=== PATIENT | female | born 1980 | race Caucasian/White ===

== ENCOUNTER 2016-10-17 19:58 | Emergency (ER) | payer OTHER ==
[2016-10-17 20:19] VITALS: BP 131/85; PULSE 66; TEMP 98.4; BMI 22.8
[2016-10-18 01:05] LABS: URINE APPEARANCE SLCLOUDY; URINE BILIRUBIN NEGATIVE (NEGATIVE); URINE COLOR LTYELLOW; URINE GLUCOSE (UA) NEGATIVE (NEGATIVE); URINE KETONE NEGATIVE (NEGATIVE); URINE NITRITE NEGATIVE (NEGATIVE); URINE PROTEIN NEGATIVE (NEGATIVE); URINE UROBILINOGEN NEGATIVE E.U./dl (0.2-1.0)
[2016-10-18 01:09] LABS: URINE BLOOD 3+ (NEGATIVE); URINE LEUK ESTERASE 2+ (NEGATIVE)
[2016-10-18 01:15] LABS: URINE BACTERIA RARE /hpf (NONE SEEN); URINE HYALINE CAST 2 /lpf; URINE MUCUS RARE; URINE RBC 4 /hpf (0-3); URINE WBC 15 /hpf (3-5)
--- NOTE | 2016-10-18 02:18 | PDOC ---
History of Present Illness - General Chief Complaint: Headache Stated Complaint: PAIN Time Seen by Provider: 10/17/16 23:58 History Source: Patient Exam Limitations: No Limitations - History of Present Illness Initial Comments: 10/18/16 02:14 35yo Female patient presents to ED c/o headache with twitching intermittently. Patient states she was evaluated by her PMD and prescribed Vit B and Ibuprofen for pain. Patient reports symptoms still persist. She denies any other complaint at this time. LNMP: September 22. Timing/Duration: reports: constant Severity: Yes: moderate Associated Symptoms: denies: denies symptoms, confusion, fatigue, fever/chills, insomnia, loss of consciousness, muscle spasms, nausea/vomiting, numbness in legs/feet, paresthesia, ringing in ears, seizures, sleepy, slurred speech, tingling in legs/feet, trouble walking, vision changes, weakness, other Past History - Travel Traveled outside of the country in the last 30 days: No Close contact w/someone who was outside of country & ill: No - Past Medical History Allergies/Adverse Reactions: Allergies Allergy/AdvReac Type Severity Reaction Status Date / Time iron Allergy Severe Itching Verified 10/17/16 20:14 Home Medications: Ambulatory Orders Famotidine [Pepcid] 20 mg PO BID #28 tablet 05/11/16 Ibuprofen [Motrin -] 600 mg PO QID #28 tablet 05/11/16 Nitrofurantoin Monohyd/M-Cryst [Macrobid -] 100 mg PO BID #14 capsule 10/18/16 Asthma: No Cancer: No Cardiac Disorders: No Diabetes: No HTN: No Suicide Attempt (Hx): No Seizures: No Thyroid Disease: No - Surgical History Cholecystectomy: Yes Neurologic Surgery: Yes (HEAD, 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) - Reproductive History (#): 4 Para: 2 Cervical CA: No Dysfunctional Uterine Bleeding: No Ectopic : No Endometrial CA: No Polycystic Ovaries: No Therapeutic (s) & number: No Tubal Ligation: No Spontaneous : 1 - Immunization History Td Vaccination: Yes TDAP Vaccination: Yes Immunization Up to Date: Yes - Psycho/Social/Smoking Cessation Hx Anxiety: No Suicidal Ideation: No Smoking Status: No Smoking History: Never smoked Years of Tobacco Use: 0 Have you smoked in the past 12 months: No Number of Cigarettes Smoked Daily: 0 Cigars Per Day: 0 Hx Alcohol Use: No Drug/Substance Use Hx: No Substance Use Type: None Hx Substance Use Treatment: No Review of Systems - Review of Systems Able to Perform ROS?: Yes Is the patient limited Sami proficient: No Constitutional: No: Chills, Fever HEENTM: No: Blurred Vision, Double Vision, Difficulty Swallowing Respiratory: No: Cough, Shortness of Breath, Stridor, Wheezing Cardiac (ROS): No: Chest Pain, Syncope ABD/GI: No: Constipated, Diarrhea, Nausea, Poor Appetite, Poor Fluid Intake, Vomiting, Abdominal cramping : No: Burning, Dysuria, Flank Pain, Hematuria Musculoskeletal: No: Back Pain, Muscle Weakness Integumentary: No: Bruising, Erythema, Rash, Sweating Neurological: Yes: Headache, Other (Twitching). No: Numbness, Paresthesia, Tingling, Tremors, Weakness All Other Systems: Reviewed and Negative *Physical Exam - Vital Signs Last Vital Signs Temp Pulse Resp BP Pulse Ox 98.4 F 66 18 131/85 100 10/17/16 20:14 10/17/16 20:14 10/17/16 20:14 10/17/16 20:14 10/17/16 20:14 - Physical Exam General Appearance: Yes: Nourished, Appropriately Dressed. No: Apparent Distress, Mild Distress, Moderate Distress, Severe Distress HEENT: positive: EOMI, DARIAN, Normal ENT Inspection, Normal Voice, Symmetrical, TMs Normal, Pharynx Normal. negative: Scleral Icterus (L), Pharyngeal Erythema , Tonsillar Exudate, Tonsillar Erythema, Nasal Congestion, Rhinorrhea, TM Bulging, TM Dull, TM Erythema Neck: positive: Trachea midline, Supple. negative: Rigid, Lymphadenopathy (R), Lymphadenopathy (L) Respiratory/Chest: positive: Lungs Clear, Normal Breath Sounds. negative: Respiratory Distress, Accessory Muscle Use, Labored Respiration, Rapid RR Cardiovascular: positive: Regular Rhythm, Regular Rate Gastrointestinal/Abdominal: positive: Normal Bowel Sounds, Soft. negative: Distended, Guarding, Rebound, Tenderness Musculoskeletal: positive: Normal Inspection. negative: CVA Tenderness Extremity: positive: Normal Capillary Refill, Normal Inspection, Normal Range of Motion. negative: Pedal Edema, Swelling, Calf Tenderness, Erythema, Inflammation Integumentary: positive: Normal Color, Dry, Warm Neurologic: positive: financial planning assistant II-XII NML intact, Fully Oriented, Alert, Normal Mood/ Affect, Normal Response, Motor Strength 09/30 ED Treatment Course - LABORATORY CBC & Chemistry Diagram: 10/18/16 02:59 10/18/16 02:59 - ADDITIONAL ORDERS Additional order review: Laboratory Results 10/18/16 00:50 Urine Color Ltyellow Urine Appearance Slcloudy Urine pH 5.0 Urine Protein Negative Urine Glucose (UA) Negative Urine Ketones Negative Urine Blood 3+ H Urine Nitrite Negative Urine Bilirubin Negative Urine Urobilinogen Negative Ur Leukocyte Esterase 2+ H Urine RBC 4 Urine WBC 15 Ur Epithelial Cells Moderate Urine Bacteria Rare Hyaline Casts 2 Urine Mucus Rare Urine HCG, Qual Negative - RADIOLOGY Radiology Studies Ordered: Category Date Time Status HEAD CT WITHOUT CONTRAST [CT] Stat CT Scan 10/18/16 00:34 Taken *DC/Admit/Observation/Transfer Diagnosis at time of Disposition: Urinary tract infection Qualifiers: Urinary tract infection type: urethritis Qualified Code(s): N34.2 - Other urethritis - Discharge Dispostion Disposition: HOME Condition at time of disposition: Improved Admit: No - Prescriptions Prescriptions: Nitrofurantoin Monohyd/M-Cryst [Macrobid -] 100 mg PO BID #14 capsule - Patient Instructions Printed Discharge Instructions: Urinary Tract Infection Additional Instructions: FOLLOW UP WITH YOUR DOCTOR SCHEDULED. TAKE MEDICATIONS PRESCRIBED. RETURN IF ANY CONCERNS OR WORSENING OF SYMPTOMS FOR FURTHER EVALUATION. Print Language: ARABIC
--- NOTE | 2016-10-18 02:29 | PDOC ---
[id number] 100 10/17/16 20:14 10/17/16 20:14 10/17/16 20:14 10/17/16 20:14 10/17/16 20:14 ED Treatment Course - LABORATORY CBC & Chemistry Diagram: 10/18/16 02:59 10/18/16 02:59 - ADDITIONAL ORDERS Additional order review: Laboratory Results 10/18/16 00:50 Urine Color Ltyellow Urine Appearance Slcloudy Urine pH 5.0 Urine Protein Negative Urine Glucose (UA) Negative Urine Ketones Negative Urine Blood 3+ H Urine Nitrite Negative Urine Bilirubin Negative Urine Urobilinogen Negative Ur Leukocyte Esterase 2+ H Urine RBC 4 Urine WBC 15 Ur Epithelial Cells Moderate Urine Bacteria Rare Hyaline Casts 2 Urine Mucus Rare Urine HCG, Qual Negative Medical Decision Making - Medical Decision Making 10/18/16 02:28 agree with care from OPERATING ROOM TECHNOLOGIST Kranthi *DC/Admit/Observation/Transfer Diagnosis at time of Disposition: UTI (urinary tract infection) - Discharge Dispostion Disposition: HOME Condition at time of disposition: Improved - Prescriptions Prescriptions: Nitrofurantoin Monohyd/M-Cryst [Macrobid -] 100 mg PO BID #14 capsule - Referrals Referrals: Mona Noe MD [Primary Care Provider] - - Patient Instructions Printed Discharge Instructions: Urinary Tract Infection Additional Instructions: FOLLOW UP WITH YOUR DOCTOR SCHEDULED. TAKE MEDICATIONS PRESCRIBED. RETURN IF ANY CONCERNS OR WORSENING OF SYMPTOMS FOR FURTHER EVALUATION. Print Language: TELUGU
[2016-10-18 03:13] LABS: BASOPHIL 0.6 % (0-2.0); EOSINOPHIL 3.2 % (0-4.5); MCH 29.9 pg (25.7-33.7); MCHC 33.1 g/dl (32.0-36.0); MEAN CELL VOLUME 90.4 fl (80-96); MEAN PLT VOLUME 8.2 fl (7.5-11.1); NEUTROPHILS 49.8 % (42.8-82.8); PLATELET COUNT 212 K/MM3 (134-434); RDW 12.8 % (11.6-15.6); WHITE BLOOD COUNT 5.6 K/mm3 (4.0-10.0)
[2016-10-18 04:03] LABS: ANION GAP 12 (8-16); BILIRUBIN,TOTAL 1.1 mg/dL (0.2-1.0); CALCIUM 8.9 mg/dL (8.5-10.1); CO2 26 mmol/L (21-32); COCKROFT - GAULT 109.565; CREATININE 0.6 mg/dL (0.55-1.02); GLUCOSE,RANDOM 91 mg/dL (74-106); SGOT/AST 12 U/L (15-37); SGPT/ALT 26 U/L (12-78); TOT PROT 7.1 g/dl (6.4-8.2)
[2016-10-18 04:04] LABS: ALK PHOS 29 U/L (45-117)
[2016-10-18] MEDS ORDERED: NITROFURANTOIN MACROCRYSTAL 50 MG CAPSULE (FP) PO SCH (04:45)
[2016-10-18] MEDS ORDERED: NITROFURANTOIN MACROCRYSTAL 50 MG CAPSULE (FP) ONE (04:52)
== END 2016-10-18 05:18 | disposition home or self-care (01) ==
LOC: JER 19:58 → JERFT 19:58 → JER 10-18 05:18
DX: N34.2 Other urethritis (principal)
CPT/HCPCS: 36415; 70450-TC; 80053; 81003; 81015; 84703; 85025; 99282-25

== ENCOUNTER 2016-10-28 10:53 | Emergency (ER) | payer OTHER ==
[2016-10-28 11:08] VITALS: PULSE 70; TEMP 97.7; BMI 22.8
--- NOTE | 2016-10-28 11:56 | PDOC ---
History of Present Illness <Marie Reyes - Last Filed: 10/28/16 12:51> <Maris Napier - Last Filed: 10/28/16 14:13> - General Chief Complaint: Chest Pain Stated Complaint: CHESTPAIN Time Seen by Provider: 10/28/16 11:09 - History of Present Illness Initial Comments: 10/28/16 12:47 Patient is a 35 year old female with no significant medical hx who is presenting to the ED one week of intermittent substernal chest pain. The patient describes her pain as moderate in severity and states it worsens with deep breath. Her pain is non-radiating and non-exertional. The patient does endorse some mild shortness of breath but no nausea, vomiting or diaphoresis. The patient reports that she was seen here a week ago for generalized malaise and was told she had a UTI. Denies fevers, chills, abdominal or complaints. Social Hx: Nonsmoker. Denies drug or alcohol use, Allergies: Iron. 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) - Reproductive History (#): 4 Para: 2 Cervical CA: No Dysfunctional Uterine Bleeding: No Ectopic : No Endometrial CA: No Polycystic Ovaries: No Therapeutic (s) & number: No Tubal Ligation: No Spontaneous : 1 - Immunization History Td Vaccination: Yes TDAP Vaccination: Yes Immunization Up to Date: Yes - Psycho/Social/Smoking Cessation Hx Anxiety: No Suicidal Ideation: No Smoking Status: No Smoking History: Never smoked Years of Tobacco Use: 0 Have you smoked in the past 12 months: No Number of Cigarettes Smoked Daily: 0 Cigars Per Day: 0 Hx Alcohol Use: No Drug/Substance Use Hx: No Substance Use Type: None Hx Substance Use Treatment: No <Maris Napier - Last Filed: 10/28/16 14:13> - Past Medical History Allergies/Adverse Reactions: Allergies Allergy/AdvReac Type Severity Reaction Status Date / Time iron Allergy Severe Itching Verified 10/28/16 11:09 Home Medications: Ambulatory Orders NK [No Known Home Medication] 10/28/16 Review of Systems <Marie Reyes - Last Filed: 10/28/16 12:51> <Maris Napier - Last Filed: 10/28/16 14:13> - Review of Systems Comments:: 10/28/16 12:50 GENERAL/CONSTITUTIONAL: No fever or chills. No weakness. HEAD, EYES, EARS, NOSE AND THROAT: No change in vision. No ear pain or discharge. No sore throat. CARDIOVASCULAR: Chest pain and shortness of breath. RESPIRATORY: No cough, wheezing, or hemoptysis. GASTROINTESTINAL: No nausea, vomiting, diarrhea or constipation. GENITOURINARY: No dysuria, frequency, or change in urination. MUSCULOSKELETAL: No joint or muscle swelling or pain. No neck or back pain. ENDOCRINE: No increased thirst. No abnormal weight change. SKIN: No rash NEUROLOGIC: No headache, vertigo, loss of consciousness, or change in strength/ sensation. (Marie Reyes) *Physical Exam <AmyManjeetMarie - Last Filed: 10/28/16 12:51> <Maris Napier - Last Filed: 10/28/16 14:13> - Vital Signs Last Vital Signs Temp Pulse Resp BP Pulse Ox 97.7 F 70 18 113/67 100 10/28/16 11:06 10/28/16 11:06 10/28/16 11:06 10/28/16 11:06 10/28/16 11:06 - Physical Exam Comments: 10/28/16 12:51 GENERAL: Awake, alert, and fully oriented, in no acute distress HEAD: No signs of trauma EYES: PERRLA, EOMI, sclera anicteric, conjunctiva clear ENT: Auricles normal inspection, hearing grossly normal, nares patent, oropharynx clear without exudates. Moist mucosa NECK: Normal ROM, supple, no lymphadenopathy, JVD, or masses LUNGS: Breath sounds equal, clear to auscultation bilaterally. No wheezes, and no crackles HEART: Regular rate and rhythm, normal S1 and S2, no murmurs, rubs or gallops ABDOMEN: Soft, nontender, normoactive bowel sounds. No guarding, no rebound. No masses EXTREMITIES: Normal range of motion, no edema. No clubbing or cyanosis. No cords, erythema, or tenderness NEUROLOGICAL: Cranial nerves II through XII grossly intact. Normal speech, normal gait SKIN: Warm, Dry, normal turgor, no rashes or lesions noted. HEMATOLOGIC/LYMPHATIC: No anemia, easy bleeding, or history of blood clots. ALLERGIC/IMMUNOLOGIC: No hives or skin allergy. (Marie Reyes) Heart Score/ECG Review <Marie Reyes - Last Filed: 10/28/16 12:51> - History History: Slightly suspicious - Electrocardiogram EKG: Normal - Age Age: </= 45 - Troponin Troponin: </= normal limit <Maris Napier - Last Filed: 10/28/16 14:13> - ECG Intrepretation Comment:: 10/28/16 12:51 Poor data quality, interpretation ma be adversely affected Normal sinus rhythm Rightward axis Borderline ECG (Marie Reyes) ED Treatment Course - LABORATORY CBC & Chemistry Diagram: 10/28/16 12:30 10/28/16 12:30 <Marie Reyes - Last Filed: 10/28/16 12:51> - LABORATORY CBC & Chemistry Diagram: 10/28/16 12:30 10/28/16 12:30 <Maris Napier - Last Filed: 10/28/16 14:13> - ADDITIONAL ORDERS Additional order review: Laboratory Results 10/28/16 10/28/16 12:30 12:30 Sodium 140 Potassium 4.0 Chloride 103 Carbon Dioxide 28 Anion Gap 9 BUN 10 Creatinine 0.6 Creat Clearance w eGFR > 60 Random Glucose 85 Calcium 9.3 Total Bilirubin 1.9 H D AST 20 D ALT 28 Alkaline Phosphatase 32 L Creatine Kinase 133 Troponin I < 0.02 Total Protein 7.5 Albumin 4.5 Serum , Qual Negative 10/28/16 12:30 RBC 4.41 MCV 89.8 MCHC 34.2 RDW 12.6 MPV 7.9 Neutrophils % 72.6 D Lymphocytes % 21.9 D Monocytes % 4.4 Eosinophils % 0.7 Basophils % 0.4 - RADIOLOGY Radiology Studies Ordered: Category Date Time Status CHEST PA & LAT [RAD] Stat Radiology 10/28/16 12:04 Taken Medical Decision Making <Marie Reyes - Last Filed: 10/28/16 12:51> <Maris Napier - Last Filed: 10/28/16 14:13> - Medical Decision Making 10/28/16 13:46 Pt presents to the ED compalining of a one week history of intermittent pleuritic chest pain. No risk factors for cardiac disease, heart score is 0, very low concern for cardiac disease. PERC negative--very low concern for PE. Will check CXR, likely discharge home if cxr is negative. (Maris Napier) *DC/Admit/Observation/Transfer <Marie Reyes - Last Filed: 10/28/16 12:51> - Discharge Dispostion Admit: No <Maris Napier - Last Filed: 10/28/16 14:13> Diagnosis at time of Disposition: Chest pain - Discharge Dispostion Disposition: HOME Condition at time of disposition: Good - Patient Instructions Printed Discharge Instructions: DI for Atypical Chest Pain - Attestations Scribe Attestion: 10/28/16 12:51 Documentation prepared by Marie Reyes, acting as medical sociologist for Maris Napier MD. (Marie Reyes)
[2016-10-28 12:38] LABS: BASOPHIL 0.4 % (0-2.0); EOSINOPHIL 0.7 % (0-4.5); MCH 30.8 pg (25.7-33.7); MCHC 34.2 g/dl (32.0-36.0); MEAN CELL VOLUME 89.8 fl (80-96); MEAN PLT VOLUME 7.9 fl (7.5-11.1); NEUTROPHILS 72.6 % (42.8-82.8); PLATELET COUNT 209 K/MM3 (134-434); RDW 12.6 % (11.6-15.6); WHITE BLOOD COUNT 7.2 K/mm3 (4.0-10.0)
[2016-10-28 13:06] LABS: ALBUMIN 4.5 g/dl (3.4-5.0); ANION GAP 9 (8-16); BILIRUBIN,TOTAL 1.9 mg/dL (0.2-1.0); CALCIUM 9.3 mg/dL (8.5-10.1); CO2 28 mmol/L (21-32); COCKROFT - GAULT 109.565; CREATININE 0.6 mg/dL (0.55-1.02); GLUCOSE,RANDOM 85 mg/dL (74-106); SGOT/AST 20 U/L (15-37); SGPT/ALT 28 U/L (12-78); TOT PROT 7.5 g/dl (6.4-8.2)
[2016-10-28 13:09] LABS: ALK PHOS 32 U/L (45-117); TROPONIN I < 0.02 ng/ml (0.00-0.05)
[2016-10-28 14:34] VITALS: BP 143/73
--- NOTE | 2016-10-29 19:19 | EKG ---
Test Reason : Blood Pressure : / mmHG Vent. Rate : 076 BPM Atrial Rate : 076 BPM P-R Int : 174 ms QRS Dur : 076 ms QT Int : 398 ms P-R-T Axes : 041 092 065 degrees QTc Int : 447 ms POOR DATA QUALITY, INTERPRETATION MAY BE ADVERSELY AFFECTED NORMAL SINUS RHYTHM RIGHTWARD AXIS BORDERLINE ECG WHEN COMPARED WITH ECG OF 21-SEP-2006 15:43, NONSPECIFIC T WAVE ABNORMALITY NOW EVIDENT IN ANTERIOR LEADS Confirmed by LEONIE OLIVARES MD ([id number]) on 10/29/2016 7:18:52 PM Referred By: Confirmed By:LEONIE OLIVARES MD
== END 2016-10-28 14:34 | disposition home or self-care (01) ==
LOC: JER 10:53
DX: R07.9 Chest pain, unspecified (principal)
CPT/HCPCS: 36415; 71020-TC; 80053; 82550; 84484; 84703; 85025; 93005; 93010; 99283-25

== ENCOUNTER 2017-06-25 08:47 | Emergency (ER) | payer OTHER ==
[2017-06-25 08:54] VITALS: BP 119/66; PULSE 77; TEMP 97.8; BMI 22.8
--- NOTE | 2017-06-25 09:09 | PDOC ---
History of Present Illness - General Chief Complaint: Respiratory Stated Complaint: COUGH Time Seen by Provider: 06/25/17 09:05 History Source: Patient Exam Limitations: No Limitations - History of Present Illness Initial Comments: 06/25/17 11:45 This 36-year-old female presents to the emergency room with complaint of a cough. Apparently she went to see her primary physician on Monday was given a Z- Brady because he told her that she had bronchitis. But the cough is still causing her to be up at night and she is now here for relief. Denies any fever, chills. She is also here with her mom who is having similar complaints. Past History - Past Medical History Allergies/Adverse Reactions: Allergies Allergy/AdvReac Type Severity Reaction Status Date / Time iron Allergy Severe Itching Verified 06/25/17 08:54 Home Medications: Ambulatory Orders Cholecalciferol (Vitamin D3) [Vitamin D3] 2,000 unit PO DAILY 05/12/17 Cyanocobalamin (Vitamin B-12) [Vitamin B-12] 2,000 mcg PO DAILY 05/12/17 Naproxen [Naprosyn -] 500 mg PO BID PRN #14 tablet 05/12/17 Benzonatate [Tessalon Pearls -] 100 mg PO TID #21 capsule 06/25/17 Asthma: No Cancer: No Cardiac Disorders: No COPD: No Diabetes: No HTN: No Seizures: No Thyroid Disease: No 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) - Reproductive History (#): 4 Para: 2 Cervical CA: No Dysfunctional Uterine Bleeding: No Ectopic : No Endometrial CA: No Polycystic Ovaries: No Therapeutic (s) & number: No Tubal Ligation: No Spontaneous : 1 - Immunization History Td Vaccination: Yes TDAP Vaccination: Yes Immunization Up to Date: Yes - Suicide/Smoking/Psychosocial Hx Smoking Status: No Smoking History: Never smoked Years of Tobacco Use: 0 Have you smoked in the past 12 months: No Number of Cigarettes Smoked Daily: 0 Cigars Per Day: 0 Hx Alcohol Use: No Drug/Substance Use Hx: No Substance Use Type: None Hx Substance Use Treatment: No Review of Systems - Review of Systems Able to Perform ROS?: Yes Comments:: 06/25/17 11:45 General statement: Feeling of positive cough all the time Hematology: neg history of bleeding/blood thinners Skin: Neg for lesions, rash, bruising. HEENT: Neg symptoms Respiratory: Neg SOB or difficulty in breathing Cardiac: Neg chest pain GI: Neg pain, n/v : Neg problems on voiding MS: Neg for joint pain/stiffness, no edema Neuro: Neg for LOC, weakness, Endocrine: Neg for excess thirst/hunger, cold/heat intolerance, excess sweating Allergies: Positive for allergies *Physical Exam - Vital Signs Last Vital Signs Temp Pulse Resp BP Pulse Ox 97.8 F 77 18 119/66 100 06/25/17 08:51 06/25/17 08:51 06/25/17 08:51 06/25/17 08:51 06/25/17 08:51 - Physical Exam Comments: 06/25/17 11:45 General Appearance: This well appearing 6-year-old female V/S: hemodynamically stable, afebrile Skin: WNL of pt's skin color, no signs of pallor, mottling, cyanosis Head:symmetrical Eyes: EOM's intact, PERRLA Ears: denies pain Nose: patent Throat: lips, teeth, gums, tongue, buccal mucos pink and moist Lungs: Chest symmetry equal. Cap refill <3 seconds. Lung sounds clear Cardiac: PMI at R 4MCL space, pos S1 and S2, regular rate. Abdomen: Soft, round, nontender : Not observed Muscularskeletal: Gait steady, ambulated in to ER, no edema +PMS Neuro: AAOx3, cognitively intact, speech clear and appropriate. Medical Decision Making - Medical Decision Making 06/25/17 11:46 36-year-old female is now presenting to the emergency room with these complaints of cough she's been seen and examined. She is already on a Z-Brady for 3 days. I have ordered her Tessalon Perles for cough. *DC/Admit/Observation/Transfer Diagnosis at time of Disposition: Cough in adult - Discharge Dispostion Disposition: HOME Condition at time of disposition: Stable Admit: No - Prescriptions Prescriptions: Benzonatate [Tessalon Pearls -] 100 mg PO TID #21 capsule - Referrals - Patient Instructions Printed Discharge Instructions: DI for Acute Bronchitis Additional Instructions: Discharge instructions 1. Please follow up with your primary physician within the next few days and explain that you have been seen here in the Emergency Room. 2. If you experience any worsening of symptoms, please return to the ER 3. Rest and complete antibiotics as your doctor prescribed. 4. Drink plenty of water Print Language: JAPANESE - Post Discharge Activity
== END 2017-06-25 09:36 | disposition home or self-care (01) ==
LOC: JERFT 08:47
DX: R05 Cough (principal)
CPT/HCPCS: 99281-25

== ENCOUNTER 2017-07-19 09:17 | Emergency (ER) | payer OTHER ==
[2017-07-19 09:23] VITALS: BP 113/69; PULSE 71; TEMP 97.8; BMI 23.0
--- NOTE | 2017-07-19 09:39 | PDOC ---
History of Present Illness - General History Source: Patient Exam Limitations: No Limitations - History of Present Illness Initial Comments: 07/19/17 10:27 The patient is a 36 year old female who is currently being treated for an oral abscess with Augmentin 400 mg, who presents to the ED complaining of 1 week of progressively worsening right breast pain with associated yellowish discharge from the right nipple. Pain has no alleviating or exacerbating factors. The patient reports she discontinued breast feeding approximately 5 months ago. She denies any fever or chills. She denies nausea, vomiting, or diarrhea. No left breast complaints. 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) - Reproductive History (#): 4 Para: 2 Cervical CA: No Dysfunctional Uterine Bleeding: No Ectopic : No Endometrial CA: No Polycystic Ovaries: No Therapeutic (s) & number: No Tubal Ligation: No Spontaneous : 1 - Immunization History Td Vaccination: Yes TDAP Vaccination: Yes Immunization Up to Date: Yes - Suicide/Smoking/Psychosocial Hx Smoking Status: No Smoking History: Never smoked Years of Tobacco Use: 0 Have you smoked in the past 12 months: No Number of Cigarettes Smoked Daily: 0 Cigars Per Day: 0 Hx Alcohol Use: No Drug/Substance Use Hx: No Substance Use Type: None Hx Substance Use Treatment: No <Andrew Tate - Last Filed: 07/19/17 14:22> - Past Medical History Allergies/Adverse Reactions: Allergies Allergy/AdvReac Type Severity Reaction Status Date / Time iron Allergy Severe Itching Verified 07/19/17 09:22 Home Medications: Ambulatory Orders Cholecalciferol (Vitamin D3) [Vitamin D3] 2,000 unit PO DAILY 05/12/17 Cyanocobalamin (Vitamin B-12) [Vitamin B-12] 2,000 mcg PO DAILY 05/12/17 Sulfamethoxazole/Trimethoprim [Bactrim Ds Tablet] 1 each PO BID #20 tablet 07/19 Review of Systems - Review of Systems Able to Perform ROS?: Yes Comments:: 07/19/17 10:29 CONSTITUTIONAL: No fever, no chills, no fatigue EYES: No visual changes ENT: No ear pain, no sore throat CARDIOVASCULAR: No chest pain, no palpitations RESPIRATORY: No cough, no SOB GI: No abdominal pain, no nausea, no vomiting, no constipation, no diarrhea GENITOURINARY: No dysuria, no frequency, no hematuria MUSCULOSKELETAL: No backpain, no joint pain, no myalgias SKIN: +R breast pain and discharge. No left breast complaints. No rash NEURO: No headache <Yesy Cook - Last Filed: 07/19/17 14:01> *Physical Exam - Vital Signs Last Vital Signs Temp Pulse Resp BP Pulse Ox 97.8 F 71 18 113/69 99 07/19/17 09:20 07/19/17 09:20 07/19/17 09:20 07/19/17 09:20 07/19/17 09:20 - Physical Exam Comments: 07/19/17 10:31 CONSTITUTIONAL: Well-appearing; well-nourished; in no apparent distress HEAD: Normocephalic; atraumatic EYES: PERRL; EOM intact ENMT: External appears normal; normal oropharynx NECK: Supple; non-tender; no cervical lymphadenopathy CARD: Normal S1, S2; no murmurs, rubs, or gallops RESP: Normal chest excursion with respiration; breath sounds clear and equal bilaterally; no wheezes, rhonchi, or rales ABD: Soft, non-distended; non-tender; no palpable organomegaly, no palpable hernias EXT: Normal ROM in all four extremities; non-tender to palpation; distal pulses intact SKIN: +Right breast with soft tissue mass with tenderness to palpation at 9 PM, no nipple retraction, no discharge. L breast normal. Otherwise, warm, dry, no rash NEURO: No focal neurological deficiencies. <Yesy Cook - Last Filed: 07/19/17 14:01> - Vital Signs Last Vital Signs Temp Pulse Resp BP Pulse Ox 97.8 F 71 18 113/69 99 07/19/17 09:20 07/19/17 09:20 07/19/17 09:20 07/19/17 09:20 07/19/17 09:20 <Andrew Tate - Last Filed: 07/19/17 14:22> ED Treatment Course - RADIOLOGY Radiograph Interpretation: 07/19/17 14:02 US of Right Breast, read and reviewed by Dr. Palencia. Impression: Right breast US negative. BI-RADS category 1 negative. <Yesy Cook - Last Filed: 07/19/17 14:01> Medical Decision Making - Medical Decision Making 07/19/17 14:20 Patient is a 36-year-old female who presents with atraumatic right breast pain, minimal soft tissue swelling and purulent discharge. Patient's afebrile and well -appearing in the ER. Breast ultrasound shows no evidence of discrete collection or mass. I suspect clinical mastitis. Will discharge with Bactrim, warm compresses and breast clinic follow-up. <Andrew Tate - Last Filed: 07/19/17 14:22> *DC/Admit/Observation/Transfer - Attestations Scribe Attestion: 07/19/17 10:33 Documentation prepared by Yesy Cook, acting as medical information specialist for Andrew Tate MD. <Yesy Cook - Last Filed: 07/19/17 14:01> - Attestations Physician Attestion: 07/19/17 11:22 The documentation was prepared by the scribe under my direct supervision. I have reviewed the documentation which correctly represents the findings, medical decision-making and critical action taken by me. <Andrew Tate - Last Filed: 07/19/17 14:22> Diagnosis at time of Disposition: Mastitis - Discharge Dispostion Disposition: HOME Condition at time of disposition: Stable - Referrals Referrals: Suzan Watson MD [Primary Care Provider] - Nikita Mosher MD [Staff Physician] - - Patient Instructions Printed Discharge Instructions: DI for Mastitis Print Language: AMHARIC - Post Discharge Activity
== END 2017-07-19 14:35 | disposition home or self-care (01) ==
LOC: JER 09:17
DX: N61.0 Mastitis without abscess (principal); N64.4 Mastodynia
CPT/HCPCS: 76642-TC-RT; 84703; 99281-25

== ENCOUNTER 2017-10-16 17:28 | Emergency (ER) | payer OTHER ==
[2017-10-16 17:48] VITALS: BP 119/73; PULSE 96; TEMP 99.1; BMI 22.8
--- NOTE | 2017-10-16 17:48 | PDOC ---
Rapid Medical Evaluation Time Seen by Provider: 10/16/17 17:47 Medical Evaluation: Allergies Allergy/AdvReac Type Severity Reaction Status Date / Time iron Allergy Severe Itching Verified 10/16/17 17:45 10/16/17 17:48 Healthy 36 year old female with one week of right-sided headache, right eye redness. Feels "very tired." Taking Tylenol without relief. -Alert, oriented, appears uncomfortable. -No focal weakness. -?Subtle left facial droop. V/s notable for HR 96. -Basic labs, pgu -To Main ED for further evaluation
--- NOTE | 2017-10-16 18:35 | PDOC ---
History of Present Illness - General History Source: Patient Exam Limitations: No Limitations - History of Present Illness Initial Comments: 10/16/17 18:32 Best Contact: PCP: Dr. Uriarte Pmhx: N/A Pshx: c sections, 2010: Laparoscopic cholecystectomy Allergies: NKDA LMP: 09/17/2017 36-year-old female presents to the emergency department complaining of right eye discomfort with general malaise, right-sided headache x1 week without dizziness, lightheadedness, nausea/vomiting, fever/chills, facial pain, airway, sore throat, cough, neck pain/stiffness, back pains, chest pain, shortness of breath, abdominal pains, flank pains, urinary symptoms, extremity numbness or tingling sensation. <Rosendo Price - Last Filed: 10/16/17 19:58> <Valeriano Pelayo - Last Filed: 10/16/17 21:36> - General Chief Complaint: Headache Stated Complaint: HEADACHE Time Seen by Provider: 10/16/17 17:47 Past History - Past Medical History Asthma: No Cancer: No Cardiac Disorders: No COPD: No Diabetes: No HTN: No Seizures: No Thyroid Disease: No Other medical history: DENIES. 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) - Reproductive History (#): 4 Para: 2 Cervical CA: No Dysfunctional Uterine Bleeding: No Ectopic : No Endometrial CA: No Polycystic Ovaries: No Therapeutic (s) & number: No Tubal Ligation: No Spontaneous : 1 - Immunization History Td Vaccination: Yes TDAP Vaccination: Yes Immunization Up to Date: Yes - Suicide/Smoking/Psychosocial Hx Smoking Status: No Smoking History: Never smoked Years of Tobacco Use: 0 Have you smoked in the past 12 months: No Number of Cigarettes Smoked Daily: 0 Cigars Per Day: 0 Hx Alcohol Use: No Drug/Substance Use Hx: No Substance Use Type: None Hx Substance Use Treatment: No <Rosendo Price - Last Filed: 10/16/17 19:58> <Valeriano Pelayo - Last Filed: 10/16/17 21:36> - Past Medical History Allergies/Adverse Reactions: Allergies Allergy/AdvReac Type Severity Reaction Status Date / Time iron Allergy Severe Itching Verified 10/16/17 17:45 Home Medications: Ambulatory Orders NK [No Known Home Medication] 10/16/17 Review of Systems - Review of Systems Able to Perform ROS?: Yes Comments:: 10/16/17 18:34 CONSTITUTIONAL: +generalized malaise Absent: fever, chills, diaphoresis, loss of appetite HEENT: Absent: rhinorrhea, nasal congestion, throat pain, throat swelling, difficulty swallowing, mouth swelling, ear pain, eye pain, visual Changes CARDIOVASCULAR: Absent: chest pain, loss of consciousness, palpitations, irregular heart rate, peripheral edema RESPIRATORY: Absent: cough, shortness of breath, dyspnea with exertion, orthopnea, wheezing, stridor, hemoptysis GASTROINTESTINAL: Absent: abdominal pain, abdominal distension, nausea, vomiting, diarrhea, constipation, melena, hematochezia GENITOURINARY: Absent: dysuria, frequency, urgency, hesitancy, hematuria, flank pain, genital pain MUSCULOSKELETAL: Absent: myalgia, arthralgia, joint swelling SKIN: Absent: rash, itching, pallor HEMATOLOGIC/IMMUNOLOGIC: Absent: easy bleeding, easy bruising, lymphadenopathy, frequent infections ENDOCRINE: Absent: unexplained weight gain, unexplained weight loss, heat intolerance, cold intolerance NEUROLOGIC: Absent: headache, focal weakness or paresthesias, dizziness, unsteady gait, seizure, mental status changes, bladder or bowel incontinence Is the patient limited Khmer proficient: No <Rosendo Price - Last Filed: 10/16/17 19:58> *Physical Exam - Vital Signs Last Vital Signs Temp Pulse Resp BP Pulse Ox 99.1 F 96 H 17 119/73 100 10/16/17 17:45 10/16/17 17:45 10/16/17 17:45 10/16/17 17:45 10/16/17 17:45 - Physical Exam Comments: 10/16/17 18:34 GENERAL: Well developed, well nourished. Awake and alert. No acute distress. HEENT: Normocephalic, atraumatic. PERRLA, EOMI. No conjunctival pallor. Sclera are non- icteric. Moist mucous membranes. Oropharynx is clear. NECK: Supple. Full ROM. No JVD. Carotid pulses 2+ and symmetric, without bruits. No thyromegaly. No lymphadenopathy. CARDIOVASCULAR: Regular rate and rhythm. No murmurs, rubs, or gallops. Distal pulses are 2+ and symmetric. PULMONARY: No evidence of respiratory distress. Lungs clear to auscultation bilaterally. No wheezing, rales or rhonchi. ABDOMINAL: Soft. Non-tender. Non-distended. No rebound or guarding. No organomegaly. Normoactive bowel sounds. MUSCULOSKELETAL Normal range of motion at all joints. No bony deformities or tenderness. No CVA tenderness. EXTREMITIES: No cyanosis. No clubbing. No edema. No calf tenderness. SKIN: Warm and dry. Normal capillary refill. No rashes. No jaundice. NEUROLOGICAL: Alert, awake, appropriate. Cranial nerves 2-12 intact. No deficits to light touch and temperature in face, upper extremities and lower extremities. No motor deficits in the in face, upper extremities and lower extremities. Normoreflexic in the upper and lower extremities. Normal speech. Toes are down- going bilaterally. Gait is normal without ataxia. PSYCHIATRIC: Cooperative. Good eye contact. Appropriate mood and affect. <Rosendo Price - Last Filed: 10/16/17 19:58> - Vital Signs Last Vital Signs Temp Pulse Resp BP Pulse Ox 99.1 F 96 H 119/73 100 10/16/17 17:45 10/16/17 17:45 10/16/17 17:45 10/16/17 17:45 10/16/17 17:45 <Valeriano Pelayo - Last Filed: 10/16/17 21:36> Moderate Sedation - Procedure Monitoring Vital Signs: Vital Signs Temp Pulse Resp BP Pulse Ox 99.1 F 96 H 119/73 100 10/16/17 17:45 10/16/17 17:45 10/16/17 17:45 10/16/17 17:45 10/16/17 17:45 <Rosendo Price - Last Filed: 10/16/17 19:58> - Procedure Monitoring Vital Signs: Vital Signs Temp Pulse Resp BP Pulse Ox 99.1 F 96 H 17 119/73 100 10/16/17 17:45 10/16/17 17:45 10/16/17 17:45 10/16/17 17:45 10/16/17 17:45 <Valeriano Pelayo - Last Filed: 10/16/17 21:36> ED Treatment Course - LABORATORY CBC & Chemistry Diagram: 10/16/17 19:02 10/16/17 19:02 <Rosendo Price - Last Filed: 10/16/17 19:58> - LABORATORY CBC & Chemistry Diagram: 10/16/17 19:02 10/16/17 19:02 - ADDITIONAL ORDERS Additional order review: Laboratory Results 10/16/17 10/16/17 10/16/17 19:02 19:02 19:02 PT with INR 10.60 INR 0.94 Sodium 138 Potassium 4.5 Chloride 106 Carbon Dioxide 30 Anion Gap 2 L BUN 10 Creatinine 0.7 Creat Clearance w eGFR > 60 Random Glucose 99 Calcium 8.3 L Total Bilirubin 0.9 D AST 15 ALT 24 Alkaline Phosphatase 31 L Total Protein 7.0 Albumin 3.8 Urine HCG, Qual Negative 10/16/17 19:02 RBC 4.22 MCV 90.1 MCHC 33.7 RDW 13.3 MPV 8.5 Neutrophils % 69.7 Lymphocytes % 20.5 Monocytes % 8.3 D Eosinophils % 1.1 Basophils % 0.4 <Valeriano Pelayo - Last Filed: 10/16/17 21:36> Progress Note - Progress Note Progress Note: 2000hrs: Signed out to JULITA Pelayo <Rosendo Price - Last Filed: 10/16/17 19:58> Medical Decision Making - Medical Decision Making ct scan was reviewed and negative. I will give her Motrin for headache and have her follow up with neurologist for further evaluation and treatment options. 10/16/17 21:33 <Valeriano Pelayo - Last Filed: 10/16/17 21:36> *DC/Admit/Observation/Transfer <Rosendo Price - Last Filed: 10/16/17 19:58> - Discharge Dispostion Decision to Admit order: No <Valeriano Pelayo - Last Filed: 10/16/17 21:36> Diagnosis at time of Disposition: Headache - Discharge Dispostion Disposition: HOME Condition at time of disposition: Stable - Referrals Referrals: Suzan Watson MD [Primary Care Provider] - Mark Gregg MD [Staff Physician] - - Patient Instructions Printed Discharge Instructions: DI for Headache Additional Instructions: The workup was negative today. Return to the emergency room if your symptoms worsen or go unresolved. It's very important few to follow-up with the neurologist to determine the cause of her headaches. He will also prescribed for you further treatment options based on his evaluation. - Post Discharge Activity
[2017-10-16 19:20] LABS: BASO % 0.4 % (0-2.0); EOS % 1.1 % (0-4.5); HEMOGLOBIN 12.8 GM/dL (10.7-15.3); LYMPH % 20.5 % (8-40); MCH 30.3 pg (25.7-33.7); MCHC 33.7 g/dl (32.0-36.0); MEAN CELL VOLUME 90.1 fl (80-96); MEAN PLT VOLUME 8.5 fl (7.5-11.1); MONO % 8.3 % (3.8-10.2); NEUT % 69.7 % (42.8-82.8); PLATELET COUNT 214 K/MM3 (134-434); RBC 4.22 M/mm3 (3.60-5.2); RDW 13.3 % (11.6-15.6); WHITE BLOOD COUNT 6.8 K/mm3 (4.0-10.0)
[2017-10-16 19:47] LABS: INR 0.94 (0.82-1.09); PROTHROMBIN TIME (PATIENT) 10.6 SEC (9.7-13.0)
[2017-10-16 20:01] LABS: ALBUMIN 3.8 g/dl (3.4-5.0); ALK PHOS 31 U/L (45-117); ANION GAP 2 (8-16); BILIRUBIN,TOTAL 0.9 mg/dL (0.2-1.0); BLOOD UREA NITROGEN 10 mg/dL (7-18); CALCIUM 8.3 mg/dL (8.5-10.1); CHLORIDE 106 mmol/L (98-107); CO2 30 mmol/L (21-32); CREATININE 0.7 mg/dL (0.55-1.02); GLUCOSE,RANDOM 99 mg/dL (74-106); POTASSIUM 4.5 mmol/L (3.5-5.1); SGOT/AST 15 U/L (15-37); SGPT/ALT 24 U/L (12-78); SODIUM 138 mmol/L (136-145)
[2017-10-16] MEDS ORDERED: IBUPROFEN 600 MG TABLET (FP) PO ONE ×2 (21:32→21:37)
== END 2017-10-16 21:40 | disposition home or self-care (01) ==
LOC: JERFT 17:28
DX: R51 Headache (principal)
CPT/HCPCS: 36415; 70450-TC; 80053; 84703; 85025; 85610; 99281-25

== ENCOUNTER 2017-12-21 22:43 | Emergency (ER) | payer OTHER ==
[2017-12-21 22:46] VITALS: BP 108/62; PULSE 68; TEMP 97.5; BMI 24.0
[2017-12-21] MEDS ORDERED: METOCLOPRAMIDE HCL INJECTION 10 MG/2 ML VIAL IVPB ONE (22:59)
[2017-12-21] MEDS ORDERED: SODIUM CHLORIDE 1,000 ML IV STA (22:59)
--- NOTE | 2017-12-21 23:01 | PDOC ---
History of Present Illness - General Chief Complaint: Headache Stated Complaint: PAIN Time Seen by Provider: 12/21/17 22:51 History Source: Patient - History of Present Illness Initial Comments: 12/22/17 00:26 37-year-old female with history of headaches complaining of 3 days of right occipital and temporal area headache and ear pain. Denies nasal congestion, fevers, URI symptoms.Patient reports that after her last ER visit patient has seen by neurology reports that she has tension headaches. 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) - Reproductive History (#): 4 Para: 2 Cervical CA: No Dysfunctional Uterine Bleeding: No Ectopic : No Endometrial CA: No Polycystic Ovaries: No Therapeutic (s) & number: No Tubal Ligation: No Spontaneous : 1 - Immunization History Td Vaccination: Yes TDAP Vaccination: Yes Immunization Up to Date: Yes - Suicide/Smoking/Psychosocial Hx Smoking Status: No Smoking History: Never smoked Years of Tobacco Use: 0 Have you smoked in the past 12 months: No Number of Cigarettes Smoked Daily: 0 Cigars Per Day: 0 Hx Alcohol Use: No Drug/Substance Use Hx: No Substance Use Type: None Hx Substance Use Treatment: No Review of Systems - Review of Systems Able to Perform ROS?: Yes Is the patient limited Belarusian proficient: No HEENTM: Yes: Ear Pain. No: Symptoms Reported, See HPI, Eye Pain, Blurred Vision , Tearing, Recent change in vision, Double Vision, Cataracts, Ocular Prothesis, Ear Discharge, Nose Pain, Nose Congestion, Tinnitus, Nose Bleeding, Hearing Loss , Throat Pain, Throat Swelling, Mouth Pain, Dental Problems, Difficulty Swallowing, Mouth Swelling, Other Neurological: Yes: Headache. No: Symptoms reported, See HPI, Numbness, Paresthesia, Pre-Existing Deficit, Seizure, Tingling, Tremors, Weakness, Unsteady Gait, Ataxia, Dizziness, Other *Physical Exam - Vital Signs Last Vital Signs Temp Pulse Resp BP Pulse Ox 97.5 F L 68 18 108/62 100 12/21/17 22:44 12/21/17 22:44 12/21/17 22:44 12/21/17 22:44 12/21/17 22:44 - Physical Exam General Appearance: Yes: Appropriately Dressed HEENT: positive: Normal ENT Inspection, Other (no right mastoid tenderness, TM clear ) Respiratory/Chest: positive: Lungs Clear, Normal Breath Sounds Gastrointestinal/Abdominal: positive: Normal Bowel Sounds, Soft Musculoskeletal: positive: Normal Inspection Extremity: positive: Normal Capillary Refill, Normal Inspection, Normal Range of Motion Integumentary: positive: Normal Color, Dry, Warm Neurologic: positive: leadership development consultant II-XII NML intact, Fully Oriented, Alert, Normal Mood/ Affect, Motor Strength 5/5, Finger to Nose (intact) ED Treatment Course - LABORATORY CBC & Chemistry Diagram: 12/21/17 23:05 12/21/17 23:05 Progress Note - Progress Note Progress Note: A: headache P:CBC, CMP Normal saline Reglan benadryl toradol *DC/Admit/Observation/Transfer Diagnosis at time of Disposition: Headache, acute Qualifiers: Headache type: tension-type Intractability: not intractable Qualified Code(s): G44.209 - Tension-type headache, unspecified, not intractable - Discharge Dispostion Disposition: HOME - Prescriptions Prescriptions: Ibuprofen 800 mg PO QID PRN #20 tablet PRN Reason: Moderate Pain - Referrals Referrals: Suzan Watson MD [Primary Care Provider] - - Patient Instructions Printed Discharge Instructions: Migraine -- Adult Additional Instructions: drink plenty of fluids take ibuprofen every 6 hours as needed for pain follow up with your doctor as soon as possible. - Post Discharge Activity Forms/Work/School Notes: Back to Work
[2017-12-21] MEDS ORDERED: METOCLOPRAMIDE HCL INJECTION 10 MG/2 ML VIAL ONE (23:10)
[2017-12-21 23:14] LABS: BASO % 0.5 % (0-2.0); EOS % 1.9 % (0-4.5); HEMATOCRIT 36.1 % (32.4-45.2); HEMOGLOBIN 12.5 GM/dL (10.7-15.3); LYMPH % 39.4 % (8-40); MCHC 34.6 g/dl (32.0-36.0); MEAN CELL VOLUME 89.7 fl (80-96); MEAN PLT VOLUME 8.4 fl (7.5-11.1); MONO % 7.1 % (3.8-10.2); NEUT % 51.1 % (42.8-82.8); PLATELET COUNT 216 K/MM3 (134-434); RBC 4.02 M/mm3 (3.60-5.2); RDW 13.2 % (11.6-15.6); WHITE BLOOD COUNT 5.4 K/mm3 (4.0-10.0)
[2017-12-21 23:44] LABS: ALBUMIN 3.9 g/dl (3.4-5.0); ALK PHOS 27 U/L (45-117); ANION GAP 7 (8-16); BLOOD UREA NITROGEN 17 mg/dL (7-18); CALCIUM 8.9 mg/dL (8.5-10.1); CHLORIDE 103 mmol/L (98-107); CO2 29 mmol/L (21-32); CREATININE 0.7 mg/dL (0.55-1.02); GLUCOSE,RANDOM 94 mg/dL (74-106); POTASSIUM 3.8 mmol/L (3.5-5.1); SGOT/AST 17 U/L (15-37); SGPT/ALT 23 U/L (12-78); SODIUM 139 mmol/L (136-145); TOT PROT 6.8 g/dl (6.4-8.2)
[2017-12-22] MEDS ORDERED: KETOROLAC TROMETHAMINE 30 MG/1 ML VIAL IVPUSH ONE (00:01)
[2017-12-22] MEDS ORDERED: KETOROLAC TROMETHAMINE 30 MG/1 ML VIAL ONE (00:15)
--- NOTE | 2017-12-22 00:43 | PDOC ---
*Physical Exam - Vital Signs Last Vital Signs Temp Pulse Resp BP Pulse Ox 97.5 F L 68 18 108/62 100 12/21/17 22:44 12/21/17 22:44 12/21/17 22:44 12/21/17 22:44 12/21/17 22:44 ED Treatment Course - LABORATORY CBC & Chemistry Diagram: 12/21/17 23:05 12/21/17 23:05 - ADDITIONAL ORDERS Additional order review: Laboratory Results 12/21/17 12/21/17 23:05 23:05 Sodium 139 Potassium 3.8 Chloride 103 Carbon Dioxide 29 Anion Gap 7 L BUN 17 Creatinine 0.7 Creat Clearance w eGFR > 60 Random Glucose 94 Calcium 8.9 Total Bilirubin 1.0 AST 17 ALT 23 Alkaline Phosphatase 27 L Total Protein 6.8 Albumin 3.9 Serum , Qual Negative 12/21/17 23:05 RBC 4.02 MCV 89.7 MCHC 34.6 RDW 13.2 MPV 8.4 Neutrophils % 51.1 D Lymphocytes % 39.4 D Monocytes % 7.1 Eosinophils % 1.9 Basophils % 0.5 - Medications Given in the ED: ED Medications Discontinued Medications Generic Name Dose Route Start Last Admin Trade Name Freq PRN Reason Stop Dose Admin Diphenhydramine HCl 50 mg 12/21/17 22:59 12/21/17 23:14 Benadryl Injection - IVPB 12/21/17 23:00 50 mg ONCE ONE Administration Sodium Chloride 1,000 mls @ 1,000 mls/hr 12/21/17 22:59 12/21/17 23:13 Normal Saline - IV 12/21/17 23:58 1,000 mls/hr ASDIR STA Administration Ketorolac Tromethamine 30 mg 12/22/17 00:01 12/22/17 00:20 Toradol Injection - IVPUSH 12/22/17 00:02 30 mg ONCE ONE Administration Metoclopramide HCl 10 mg 12/21/17 22:59 12/21/17 23:14 Reglan Injection - IVPB 12/21/17 23:00 10 mg ONCE ONE Administration Medical Decision Making - Medical Decision Making 12/22/17 00:42 agree with care from JULITA León *DC/Admit/Observation/Transfer Diagnosis at time of Disposition: Headache, acute Qualifiers: Headache type: tension-type Intractability: not intractable Qualified Code(s): G44.209 - Tension-type headache, unspecified, not intractable - Referrals Referrals: Suzan Watson MD [Primary Care Provider] - - Patient Instructions Printed Discharge Instructions: Migraine -- Adult Additional Instructions: drink plenty of fluids take ibuprofen every 6 hours as needed for pain follow up with your doctor as soon as possible. - Post Discharge Activity
== END 2017-12-22 02:32 | disposition home or self-care (01) ==
LOC: JER 22:43
PROC: 3E033GC Introduction of Other Therapeutic Substance into Peripheral Vein, Percutaneous Approach (ICD-10-PCS; principal; 2017-12-21)
PROC: 3E033GC Introduction of Other Therapeutic Substance into Peripheral Vein, Percutaneous Approach (ICD-10-PCS; 2017-12-21)
PROC: 3E0333Z Introduction of Anti-inflammatory into Peripheral Vein, Percutaneous Approach (ICD-10-PCS; 2017-12-21)
DX: G44.209 Tension-type headache, unspecified, not intractable (principal)
CPT/HCPCS: 36415; 80053; 84703; 85025; 99282-25; J7030